=== PATIENT | female | born 1970 | race Hispanic/Latino ===

== ENCOUNTER 2016-06-28 12:24 | Emergency (ER) | payer SELFPAY ==
--- NOTE | 2016-06-28 16:21 | Emergency Department Report ---
Entered by DINESH ATWOOD, acting as scribe for CHELSEY MCINTYRE NP. Chief Complaint: Weakness Stated Complaint: WEAK,DIZZY Time Seen by Provider: 06/28/16 16:14 - HPI History of Present Illness: 45 y/o female presents c/o dizziness that occurred earlier today at work. Pt notes that Sx have improved here at ED. states just feels off no pmh no psh no meds cig no neuro or focal deficits NAD VSS Ambulatory - ROS Review of Systems: as noted in HPI - Exam Vital Signs: Vital Signs 06/28/16 13:00 Temperature 98.0 F Pulse Rate 96 H Respiratory 20 Rate Blood Pressure 149/94 O2 Sat by Pulse 99 Oximetry Physical Exam: as noted in HPI MSE screening note: Focused history and physical exam performed. Due to findings the following was ordered: ED Disposition for MSE Condition: Stable Referrals: PRIMARY CARE, [Primary Care Provider] - 3-5 Days This documentation as recorded by the scribe,DINESH ATWOOD,accurately reflects the service I personally performed and the decisions made by ,CHELSEY MCINTYRE NP.
[2016-06-28 18:24] LABS: Bilirubin,Urine NEG (Negative); Blood,Urine NEG (Negative); Ketones,Urine TR mg/dL (Negative); Leukocyte Esterase,Urine NEG (Negative); Nitrite,Urine NEG (Negative); Protein,Urine <15 mg/dL mg/dL (Negative); Urobilinogen,Urine < 2.0 mg/dL (<2.0); WBC,Urine < 1.0 /HPF (0.0-6.0)
[2016-06-28 18:33] LABS: Basophils % (Auto) 0.6 % (0.0-1.8); Eosinophils % (Auto) 1.4 % (0.0-4.3); Hematocrit 43.2 % (30.3-42.9); Hemoglobin 14.7 gm/dl (10.1-14.3); Mean Corpuscular HGB Conc 34 % (30-34); Mean Corpuscular Hemoglobin 33 pg (28-32); Mean Corpuscular Volume 96 fl (79-97); Platelet Count 282 K/mm3 (140-440); Red Blood Count 4.48 M/mm3 (3.65-5.03); White Blood Count 9.2 K/mm3 (4.5-11.0)
[2016-06-28 19:02] LABS: Alanine Aminotransferase 81 units/L (7-56); Albumin 4.6 g/dL (3.9-5); Albumin/Globulin Ratio 1.5 %; Alkaline Phosphatase 84 units/L (35-129); Anion Gap 18 mmol/L; Bilirubin,Total 0.6 mg/dL (0.1-1.2); Blood Urea Nitrogen 7 mg/dL (7-17); Calcium 9.5 mg/dL (8.4-10.2); Carbon Dioxide 30 mmol/L (22-30); Chloride 91.4 mmol/L (98-107); Glucose 135 mg/dL (65-100); Potassium 4.3 mmol/L (3.6-5.0); Sodium 135 mmol/L (137-145); Total Protein 7.7 g/dL (6.3-8.2)
[2016-06-28 19:04] LABS: Creatine Kinase 145 units/L (30-135)
[2016-06-28] MEDS ORDERED: NACL 0.9% 500 ML 500 ML IV ONE (22:07)
--- NOTE | 2016-06-28 22:13 | Emergency Department Report ---
HPI - General Chief Complaint: Weakness Time Seen by Provider: 06/28/16 21:46 - HPI HPI: The patient's 45-year-old female who presents for evaluation of lightheadedness. The patient reports that at 10:30 AM this morning, while at work, she experienced severe and constant lightheadedness for 3-4 hours, exacerbated with walking, and improved with sitting down and resting. The patient denies fever, headache, neck pain, paresthesias, focal motor weakness, blurry vision, ear pain, tinnitus, chest pain, hemoptysis, dyspnea, abdominal pain, confusion or altered mental status, or recent URI or diarrhea. ED Past Medical Hx - Past Medical History Previous Medical History?: No - Surgical History Past Surgical History?: Yes Additional Surgical History: Chest surgery ?? - Social History Smoking Status: Current Every Day Smoker Substance Use Type: Alcohol ED Review of Systems ROS: Stated complaint: WEAK,DIZZY Other details as noted in HPI Constitutional: reports lightheadedness denies: fever ENT: denies: throat or neck pain Respiratory: denies: cough, shortness of breath Cardiovascular: denies: chest pain Endocrine: denies unexplained weight loss or gain Gastrointestinal: denies: abdominal pain, nausea Genitourinary: denies: dysuria Musculoskeletal: denies: leg swelling Skin: denies: rash Neurological: denies: headache Hematological/Lymphatic: denies: easy bleeding or easy bruising Psych: denies sadness or hopelessness Physical Exam - Physical Exam Vital Signs: Vital Signs 06/28/16 06/28/16 13:00 21:18 Temperature 98.0 F Pulse Rate 96 H 80 Respiratory 20 18 Rate Blood Pressure 149/94 Blood Pressure 148/85 [Left] O2 Sat by Pulse 99 100 Oximetry Physical Exam: General: well-nourished, well-developed, no acute distress Head: Normocephalic, atraumatic Eyes: normal sclera, no nystagmus ENT: Mucous membranes are pale and dry Neck: No neck stiffness, no cervical adenopathy Respiratory: Breath sounds equal bilaterally, no wheezing, rales, or rhonchi Cardio: S1 and S2 present, no murmurs, rubs, gallops, capillary refill is delayed Abdomen: Normoactive bowel sounds, soft abdomen, no tenderness Chest WALL/Back: No tenderness to palpation of the chest wall, no CVA tenderness with percussion Musc: No pitting edema Skin: No rash Neuro: Alert oriented 3, no facial drooping, normal speech, no pronator drift, normal or sensory deficit in the arms or legs, no coordination deficit, reflexes 2+ symmetric on DTR testing, no obvious gross neuro deficits on exam Psych: Normal affect ED Course Vital Signs 06/28/16 06/28/16 13:00 21:18 Temperature 98.0 F Pulse Rate 96 H 80 Respiratory 20 18 Rate Blood Pressure 149/94 Blood Pressure 148/85 [Left] O2 Sat by Pulse 99 100 Oximetry ED Medical Decision Making - Lab Data Result diagrams: 06/28/16 18:17 06/28/16 18:17 - Medical Decision Making The patient was seen and examined by myself. The patient is placed on a dairy consultant and continuous pulse ox. On initial evaluation, the patient was found to be in no distress. Evaluation orders were placed. The patient is given 1 L normal saline fluid bolus for treatment of dehydration. Lab results reveal elevated hemoglobin and hematocrit, consistent with hemoconcentration and exam findings of dehydration, and otherwise labs were grossly unremarkable. The patient was reevaluated and reported that their symptoms were markedly improved. The patient is stable for discharge with outpatient follow-up. The patient is given follow-up and return instructions. The patient expressed understanding and agreed with the plan. The patient is discharged in stable condition. Critical care attestation.: If time is entered above; I have spent that time in minutes in the direct care of this critically ill patient, excluding procedure time. ED Disposition Clinical Impression: Dehydration, Orthostatic dizziness, Pre-syncope Disposition: DISCHARGED TO HOME OR SELFCARE Is pt being admited?: No Does the pt Need Aspirin: No Condition: Stable Instructions: Dehydration (ED), Near Syncope (ED), Lightheadedness (ED) Referrals: PRIMARY CARE, [Primary Care Provider] - 3-5 Days Time of Disposition: 22:11
[2016-06-28 23:36] VITALS: BP 146/79
== END 2016-06-28 23:36 | disposition home or self-care (01) ==
LOC: ED 12:24
DX: R42 Dizziness and giddiness (principal); E86.0 Dehydration; R55 Syncope and collapse; F17.200 Nicotine dependence, unspecified, uncomplicated
CPT/HCPCS: 36415; 80053; 81001; 82550; 82962; 84484; 84702; 85025; 93005; 93010; 99284; J7040

== ENCOUNTER 2020-05-21 18:16 | Emergency (ER) | payer SELFPAY ==
[2020-05-21] MEDS ORDERED: DIPHtheria,PERTUSSIS(ACELL),TETANUS VACCINE/PF 0.5 ML VIAL IM ONE (18:50)
[2020-05-21] MEDS ORDERED: SODIUM CHLORIDE 0.9% IRR 500 ML BOTTLE IR ONE (18:51)
--- NOTE | 2020-05-21 18:52 | Event Note ---
ED Screening Note Date of service: 05/21/20 Time: 18:51 ED Screening Note: Patient presents with dog bites to right hand and right arm States the dog was owned by the car shop that was fixing her hand She states that the yard loader operator stated the dog shots were up-to-date, however she is unsure if this was true This initial assessment/diagnostic orders/clinical plan/treatment(s) is/are subject to change based on patients health status, clinical progression and re- assessment by fellow clinical providers in the ED. Further treatment and workup at subsequent clinical providers discretion. Patient/guardian urged not to elope from the ED as their condition may be serious if not clinically assessed and managed. Initial orders include: Wound irrigation in ACC Tetanus vaccine
[2020-05-21 18:53] VITALS: BP 206/126
== END 2020-05-21 21:20 | disposition left against medical advice (07) ==
LOC: ED 18:16
DX: M79.601 Pain in right arm (principal); Z53.21 Procedure and treatment not carried out due to patient leaving prior to being seen by health care provider; W54.0XXA Bitten by dog, initial encounter; Y93.89 Activity, other specified; Y92.89 Other specified places as the place of occurrence of the external cause; Y99.8 Other external cause status